=== PATIENT | female | born 1960 ===

== ENCOUNTER 2021-08-07 12:40 | Emergency (ER) | payer SELFPAY ==
--- NOTE | 2021-08-07 12:53 | Emergency Department Report ---
ED General Adult HPI - General Stated complaint: SVT Time Seen by Provider: 08/07/21 12:51 - History of Present Illness Initial comments: Patient presents by EMS with SVT. She had complained of chest pain or shortness of breath. EMS was called. EMS found the patient to have SVT with a heart rate in the 170 range. They administered adenosine 6 mg IV. She converted. She now no longer has chest pain or shortness of breath. She states that she feels back to normal. She is never had symptoms like this before. There has been no recent cough or congestion. There is no chest pain now. There is no vomiting or diarrhea. There is no recent travel. ED Review of Systems ROS: Stated complaint: SVT Other details as noted in HPI Comment: All other systems reviewed and negative Constitutional: denies: fever Eyes: denies: eye pain ENT: denies: throat pain Respiratory: denies: cough Cardiovascular: as per HPI Endocrine: denies: unexplained weight loss Gastrointestinal: denies: abdominal pain Genitourinary: denies: dysuria Musculoskeletal: denies: back pain Skin: denies: rash Neurological: denies: headache Hematological/Lymphatic: denies: easy bruising ED Past Medical Hx - Past Medical History Hx Hypertension: Yes Hx Diabetes: Yes - Family History Family history: hypertension - Social History Smoking Status: Never Smoker ED Physical Exam - General Limitations: No Limitations, Other General appearance: alert, in no apparent distress - Head Head exam: Present: atraumatic, normocephalic - Eye Eye exam: Present: normal appearance. Absent: scleral icterus - ENT ENT exam: Present: normal exam, mucous membranes moist, normal external ear exam - Neck Neck exam: Present: normal inspection. Absent: meningismus - Respiratory Respiratory exam: Present: normal lung sounds bilaterally. Absent: respiratory distress - Cardiovascular Cardiovascular Exam: Present: regular rate, normal rhythm - GI/Abdominal GI/Abdominal exam: Present: soft. Absent: tenderness - Extremities Exam Extremities exam: Present: normal capillary refill. Absent: pedal edema, calf tenderness - Back Exam Back exam: Absent: CVA tenderness (R), CVA tenderness (L) - Neurological Exam Neurological exam: Present: alert, oriented X3, CN II-XII intact. Absent: motor sensory deficit - Psychiatric Psychiatric exam: Present: normal affect, normal mood - Skin Skin exam: Present: warm, dry ED Course Vital Signs 08/07/21 08/07/21 08/07/21 12:46 13:01 13:15 Pulse Rate 97 H 101 H Respiratory 25 H 30 H Rate Blood Pressure 108/71 136/91 O2 Sat by Pulse 98 97 97 Oximetry - Reevaluation(s) Reevaluation #1: 08/07/21 12:53 EMS was met. EKG was ordered. Old records reviewed. Reevaluation #2: 08/07/21 13:56 Labs were noted ED Medical Decision Making - Lab Data Result diagrams: 08/07/21 12:56 Rhythm strip: Normal sinus rhythm without ectopy. Monitor observed for 10 seconds. - EKG Data 08/07/21 13:56 EKG shows a normal sinus rhythm at a rate of 98. Intervals are normal including QRS of 76 and a QT corrected of 1-45. Patient has no ST elevation to suggest any persistent ST depression suggestive of ischemia. There is T wave flattening diffusely. There is no old EKG for comparison. - Medical Decision Making Patient presents with an arrhythmia and had SVT. This was treated by EMS. Patient is asymptomatic here. She has no evidence of SVT here. There is no evidence of electrolyte derangement. Patient will be discharged. I have used a poured wall foreman to discuss this with her. I discussed this with her family. She does not have chest pain or shortness of breath other than SVT. I do not believe this represents ACS. She has no hypoxia. There is no risk factor for PE. Critical care attestation.: If time is entered above; I have spent that time in minutes in the direct care of this critically ill patient, excluding procedure time. ED Disposition Clinical Impression: SVT (supraventricular tachycardia) Disposition: 01 HOME / SELF CARE / HOMELESS Is pt being admited?: No Condition: Stable Instructions: Supraventricular Tachycardia, Adult Additional Instructions: Drink water. Avoid caffeine. Return for problems. Referrals: PRIMARY CARE, [Referring] - 3-5 Days ALEXA WHALEY MD [Staff Physician] - 3-5 Days PAIRSH CASTELAN MD [Staff Physician] - 3-5 Days
[2021-08-07 13:36] LABS: Blood Urea Nitrogen 19 mg/dL (7-17); Calcium 9.1 mg/dL (8.4-10.2); Hemolysis Index 10
[2021-08-07 13:50] LABS: BUN/Creatinine Ratio 48
[2021-08-07 15:58] VITALS: BP 126/87
--- NOTE | 2021-08-13 14:40 | Electrocardiograph Report ---
[facility] Test Date: 2021-08-07 Test Time: 12:52:45 Pat Name: CARLO HDEZ Department: Room: Gender: F Eddy Current Inspector: JN : [id number] Requested By: HAVEN PERSAUD Order Number: [id number] Reading MD: Zuleyma Gay Measurements Intervals [place] Rate: 98 P: 37 WI: 152 QRS: -8 QRSD: 76 T: 43 QT: 349 QTc: 445 Interpretive Statements Sinus rhythm No previous ECG available for comparison Electronically Signed On 08-13-2021 14:39:40 EDT by Zuleyma Gay
== END 2021-08-07 15:00 | disposition home or self-care (01) ==
LOC: ED 12:40
DX: I47.1 Supraventricular tachycardia (principal); I10 Essential (primary) hypertension; E11.9 Type 2 diabetes mellitus without complications; Z79.899 Other long term (current) drug therapy
CPT/HCPCS: 36415; 80048; 93005; 99283